=== PATIENT | female | born 1945 | race Caucasian/White ===

== ENCOUNTER 2022-09-16 19:52 | Inpatient (IN) | payer MEDICAID ==
[~2022-09-16] VITALS: Ht 162.6 cm; Wt 54.4 kg
[2022-09-16 19:56] VITALS: BP 117/81
--- NOTE | 2022-09-16 19:59 | NUR ---
PT BROUGHT TO BED 8 VIA PANCHO ROSEN
[2022-09-16] MEDS ORDERED: ONDANSETRON 4 MG/2 ML VIAL IVP ONE (20:15)
[2022-09-16] MEDS ORDERED: ONDANSETRON 4 MG/2 ML VIAL ONE (20:16)
--- NOTE | 2022-09-16 20:24 | NUR ---
PATIENT MEDICATED PER ORDERS. TOLERATED WELL.
[2022-09-16] MEDS ORDERED: NACL 0.9% 1,000 ML IV ONE ×2 (20:55→23:35)
--- NOTE | 2022-09-16 21:07 | NUR ---
77YR OLD FEMALE BIB EMS C/O CP ABD PAIN . 08/25 PAIN RADIATES TO BACK PRESSURE . VOMITING ONSET . PT IS A&OX3. RESP EVEN AND UNLABORED PT ON BEDSIDE E D TECH. PT IS LATVIAN SPEAKING ONLY. HOB ELEVATED. GLUC 257. NKDA CANCER PT HTN DM
--- NOTE | 2022-09-16 21:24 | NUR ---
XRAY AT BEDSIDE
--- NOTE | 2022-09-16 21:40 | NUR ---
ABENA COLLECTED AND WALKED TO LAB
--- NOTE | 2022-09-16 21:40 | NUR ---
URINE COLLECTED AND WALKED TO LAB.
--- NOTE | 2022-09-16 21:42 | NUR ---
COVID SWAB FOR POSS ADMISSION
--- NOTE | 2022-09-16 21:46 | NUR ---
SPOKE TO FAMILY WITH UPDATE ON PATIENT. STATED DAUGHTER JAROD ALFARO [phone] WOULD LIKE TO BE NOTIFIED WITH CHANGES OR FOR DISCHARGE.
[2022-09-16] MEDS ORDERED: METF-1139 PO (21:48)
[2022-09-16] MEDS ORDERED: VITA1TAB44 PO (21:48)
--- NOTE | 2022-09-16 21:48 | NUR ---
MED REC COMPLETE
[2022-09-16 21:53] LABS: BASOPHILS % (AUTO) 0.7 % (0.0-2.0); EOSINOPHILS % (AUTO) 2.5 % (0.0-4.0); HEMATOCRIT 35.6 % (36-48); HEMOGLOBIN 11.9 g/dL (12.0-16.0); LYMPHOCYTES # (AUTO) 0.9 K/uL (2.5-16.5); LYMPHOCYTES % (AUTO) 71.8 % (20.5-51.1); MEAN CORPUSCULAR HEMOGLOBIN 32 pg (27-31); MEAN CORPUSCULAR HGB CONC 34 g/dL (33-37); MEAN CORPUSCULAR VOLUME 94.1 fL (80-94); MONOCYTES # (AUTO) 0.3 K/uL (0.8-1.0); MONOCYTES % (AUTO) 23.8 % (1.7-9.3); NEUTROPHILS % (AUTO) 1.2 % (42.2-75.2); PLATELET COUNT (AUTO) 59 K/uL (140-450); RED BLOOD CELL COUNT(AUTO) 3.79 MIL/uL (4.20-5.40); RED CELL DISTRIBUTION WIDTH 17.6 % (11.6-13.7)
[2022-09-16 22:07] LABS: APPEARANCE,URINE CLEAR (CLEAR); BILIRUBIN,URINE NEGATIVE (NEGATIVE); BLOOD, URINE NEGATIVE (NEGATIVE); COLOR,URINE YELLOW (YELLOW); LEUKOCYTE ESTERASE ,URINE NEGATIVE (NEGATIVE); NITRITE, URINE POSITIVE (NEGATIVE); PH,URINE 7.5 (5.0-9.0); UGLUCOSE 1+ (NEGATIVE)
[2022-09-16 22:33] LABS: ALBUMIN 3.4 g/dL (3.4-5.0); ANION GAP 13.5 (8-16); ASPARTATE AMINOTRANSFERASE 18 U/L (15-37); CHLORIDE 99 mmol/L (98-107); CREATININE 0.8 mg/dL (0.6-1.3); GLUCOSE 239 mg/dL (74-106); LIPASE 72 U/L (73-393); POTASSIUM 3.5 mmol/L (3.5-5.1); SODIUM SERUM 136 mmol/L (136-145); TOTAL BILIRUBIN 0.6 mg/dL (0.0-1.0); UREA NITROGEN, BLOOD 22 mg/dL (7-18); WHITE BLOOD COUNT (AUTO) 1.2 K/uL (4.8-10.8)
[2022-09-16] MEDS ORDERED: PIPERACILLIN/TAZOBACTAM 3.375 GM in DEXTROSE 5% 50 ML IV ONE (23:40)
--- NOTE | 2022-09-16 23:58 | NUR ---
SPOKE TO SYLVIE ANTOINE [phone]. WOULD LIKE TO BE UPDATED IN REGARDS TO PATIENT STATUS.
[2022-09-17] MEDS ORDERED: PIPERACILLIN/TAZOBACTAM 3.375 GM VIAL IV ONE (00:02)
--- NOTE | 2022-09-17 00:33 | NUR ---
SPOKE TO SYSTEMS TECHNOLOGIST NEO REGARDING CLINICALS. STATED THAT SHE WOULD BE CALLING BACK WITH AN UPDATE.
--- NOTE | 2022-09-17 01:05 | NUR ---
SPOKE TO NEO GUM DIPPER UPDATED WITH MEDS GIVEN
--- NOTE | 2022-09-17 03:46 | NUR ---
PT REPOSTION CHANGED INTO DRY GOWN. PT HAD A ESPIODE OF VOMITING. DENIES PAIN CP OR SOB. ON BEDSIDE POLICY AND PLANNING MANAGER. HOB ELEVATED. BED AT LOWEST LEVEL.
--- NOTE | 2022-09-17 03:57 | NUR ---
IV ESTABLISHED 18G L AC.
--- NOTE | 2022-09-17 03:58 | NUR ---
PATIENT TAKEN TO CT VIA JESSIKA
--- NOTE | 2022-09-17 04:05 | NUR ---
PT TO CT
--- NOTE | 2022-09-17 04:16 | NUR ---
PT BACK FROM CT
--- NOTE | 2022-09-17 06:48 | NUR ---
PT CHANGED INTO CLEAN AND DRY DIAPER. REPOSITION PT . ON CARIDAC BEDSIDE MONITOR
--- NOTE | 2022-09-17 07:20 | NUR ---
Report recieved from JOSSELINE Ann for transfer of care.
--- NOTE | 2022-09-17 08:11 | NUR ---
Patient was assisted in using bedside commode.
[2022-09-17] MEDS ORDERED: DOCUSATE SODIUM 100 MG GELCAP PO PRN (08:20)
[2022-09-17] MEDS ORDERED: ZOLPIDEM 10 MG TAB PO PRN (08:20)
[2022-09-17] MEDS ORDERED: LORazepam 2 MG/ML VIAL IVP PRN (08:20)
[2022-09-17] MEDS ORDERED: MORPHINE SULFATE 2 MG/ML SYR IVP PRN (08:20)
[2022-09-17] MEDS ORDERED: DEXTROSE 50% 50 ML SYR IVP PRN (08:25)
--- NOTE | 2022-09-17 08:34 | NUR ---
Dr. Brown, admitting doctor, evaluating patient at bedside.
[2022-09-17 09:20] VITALS: BP 148/55
--- NOTE | 2022-09-17 09:32 | NUR ---
Patient will be admitted to care of Dr. Brown. Admited to Med-Surg. Will go to room 110-B. Belongings list completed. Report to ASIM Wynn.
--- NOTE | 2022-09-17 09:40 | NUR ---
RECEIVED REPORT FROM ED NURSE FOR CONTINUITY OF CARE. PT IN STABLE CONDITION. PT IS CURRENTLY SLEEPING, A/OX3 AND BREATHING IS EVEN, REGULAR AND UNLABORED ON ROOM AIR. PT WAS REPORTED CONTINENT OF THE BLADDER, AND REPORTED SEVERE CONSTIPATION WITH DISTAL FECAL IMPACTION. LAST BLOOD SUGAR REPORTED WAS 239, AND WAS NOT COVERED WITH INSULIN. SKIN IS INTACT, AND FRAIL. PT IS ADMITTED ON OBSERVATION STATUS. 2X IV'S NOTED, BOTH ON THE LEFT ARM, BOTH DRESSING CLEAN, DRY, AND INTACT. PT ENDORSED NAUSEA AT THIS TIME, AND REQUESTED TO KEEP SLEEPING.
--- NOTE | 2022-09-17 10:16 | NUR ---
The patient's care was reviewed and supervised by Melissa Colin RN.
[2022-09-17] MEDS: BLOOD GLUCOSE MONITORING 1 DEV DEV FS SCH ×3 (12:08→21:14)
[2022-09-17] MEDS: INSULIN LISPRO SLIDING SCALE 100 UNITS/ML VIAL SUBQ PRN ×2 (12:22→21:13)
[2022-09-17] MEDS: NACL 0.9% 1,000 ML IV SCH (13:01)
[2022-09-17] MEDS: PIPERACILLIN/TAZOBACTAM 3.375 GM in DEXTROSE 5% 50 ML IV SCH ×2 (13:09→21:14)
[2022-09-17] MEDS: PANTOPRAZOLE 40 MG INJ VIAL IVP SCH (13:28)
[2022-09-17] MEDS: POLYETHYLENE GLYCOL 17 GM/PKT PO SCH (13:28)
[2022-09-17] MEDS ORDERED: VANCOMYCIN PER PHARMACY MC PRN (15:50)
[2022-09-17 16:00] VITALS: BP 129/64
--- NOTE | 2022-09-17 16:04 | NUR ---
P.T. NOTES P.T. EVAL COMPLETED; REFER TO EVAL FOR DETAILS.
[2022-09-17] MEDS: AZITHROMYCIN 500 MG in DEXTROSE 5% 250 ML IV SCH (17:44)
--- NOTE | 2022-09-17 19:10 | NUR ---
ENDORSED PT TO NIGHTSHIFT NURSE VANDANA FOR CONTINUITY OF CARE. PT'S DAUGHTER AT THE BEDSIDE.
[2022-09-17] MEDS: VANCOMYCIN 750 MG in DEXTROSE 5% 250 ML IV SCH (19:15)
--- NOTE | 2022-09-17 19:30 | NUR ---
RECIEIVED PT IN BED WITH DAUGHTER AT BEDSIDE ASSESSMENT COMPLETED PLAN OF CARE REVIEWED PT DENIES PAIN AT THIS TIME NO DISTRESS NOTED PLAN OF CARE REVIEWED BREATHING EVEN NON LABORED WILL CONTINUE TO MONITOR AND ASSESS CALL LIGHT IN REACH BED IN LOW POSITION PURWICK IN PLACE
[2022-09-18] MEDS: ACETAMINOPHEN 325 MG TAB PO PRN (00:02)
--- NOTE | 2022-09-18 00:06 | NUR ---
PT AWAKE ASSISTED WITH TURNING AND REPSITIONING COMPLAINS OF HEADACHE 02/23 TYLENOL GIVEN ORDERED WILL CONTINUE TO MONITOR AND ASSESS
[2022-09-18] MEDS: NACL 0.9% 1,000 ML IV SCH ×2 (01:06→15:43)
[2022-09-18] MEDS: PIPERACILLIN/TAZOBACTAM 3.375 GM in DEXTROSE 5% 50 ML IV SCH ×3 (04:33→21:28)
[2022-09-18] MEDS: BLOOD GLUCOSE MONITORING 1 DEV DEV FS SCH ×4 (06:20→21:20)
[2022-09-18] MEDS: INSULIN LISPRO SLIDING SCALE 100 UNITS/ML VIAL SUBQ PRN ×4 (06:21→21:25)
[2022-09-18 07:13] LABS: HEMATOCRIT 27.2 % (36-48); HEMOGLOBIN 9.4 g/dL (12.0-16.0); MEAN CORPUSCULAR HEMOGLOBIN 32 pg (27-31); MEAN CORPUSCULAR HGB CONC 35 g/dL (33-37); MEAN CORPUSCULAR VOLUME 91.4 fL (80-94); PLATELET COUNT (AUTO) 68 K/uL (140-450); RED BLOOD CELL COUNT(AUTO) 2.98 MIL/uL (4.20-5.40); RED CELL DISTRIBUTION WIDTH 17.4 % (11.6-13.7); WHITE BLOOD COUNT (AUTO) 3.6 K/uL (4.8-10.8)
[2022-09-18 07:15] LABS: ANION GAP 13.1 (8-16); CARBON DIOXIDE 28.3 mmol/L (21-32); CHLORIDE 97 mmol/L (98-107); CREATININE 0.5 mg/dL (0.6-1.3); GLUCOSE 173 mg/dL (74-106); SODIUM SERUM 136 mmol/L (136-145); UREA NITROGEN, BLOOD 12 mg/dL (7-18)
--- NOTE | 2022-09-18 07:22 | NUR ---
CARE ENDORSED TO JACKELINE DAILEY
[2022-09-18 07:31] LABS: POTASSIUM 2.4 mmol/L (3.5-5.1)
[2022-09-18 08:00] VITALS: BP 128/62
[2022-09-18 08:14] LABS: LYMPHOCYTES % (MANUAL) 42 % (20-46); METAMYELOCYTES % 3 % (0-0); MONOCYTES % (MANUAL) 20 % (5-12); MYELOCYTES % 3 % (0-0)
[2022-09-18] MEDS: MAG SULF 2000 MG/WATER PREMIX 50 ML IV PRN (08:28)
[2022-09-18] MEDS: PANTOPRAZOLE 40 MG INJ VIAL IVP SCH (08:29)
[2022-09-18] MEDS ORDERED: POTASSIUM CHLORIDE 10 MEQ TABER PO SCH (09:00)
[2022-09-18] MEDS: POLYETHYLENE GLYCOL 17 GM/PKT PO SCH ×2 (09:00→09:21)
[2022-09-18] MEDS ORDERED: POTASSIUM CHLORIDE 40 MEQ, LIDOCAINE 1% 25 MG in NACL 0.9% 250 ML IV SCH (09:30)
[2022-09-18] MEDS: bisacodyL 5 MG TABEC PO SCH (09:42)
[2022-09-18 16:00] VITALS: BP 114/50
[2022-09-18] MEDS: AZITHROMYCIN 500 MG in DEXTROSE 5% 250 ML IV SCH (16:50)
[2022-09-18] MEDS: ONDANSETRON 4 MG/2 ML VIAL IVP PRN (16:57)
[2022-09-18] MEDS: VANCOMYCIN 750 MG in DEXTROSE 5% 250 ML IV SCH (18:30)
[2022-09-19 01:24] VITALS: BP 124/68
[2022-09-19] MEDS: NACL 0.9% 1,000 ML IV SCH ×2 (04:41→18:05)
[2022-09-19] MEDS: PIPERACILLIN/TAZOBACTAM 3.375 GM in DEXTROSE 5% 50 ML IV SCH ×3 (04:42→21:23)
[2022-09-19] MEDS: INSULIN LISPRO SLIDING SCALE 100 UNITS/ML VIAL SUBQ PRN ×4 (06:51→20:56)
[2022-09-19] MEDS: BLOOD GLUCOSE MONITORING 1 DEV DEV FS SCH ×4 (06:52→20:52)
[2022-09-19 06:57] LABS: BASOPHILS % (AUTO) 0.5 % (0.0-2.0); EOSINOPHILS # (AUTO) 0.1 K/uL (0-0.4); HEMOGLOBIN 10.3 g/dL (12.0-16.0); LYMPHOCYTES # (AUTO) 1.1 K/uL (2.5-16.5); LYMPHOCYTES % (AUTO) 16.8 % (20.5-51.1); MEAN CORPUSCULAR HEMOGLOBIN 32 pg (27-31); MEAN CORPUSCULAR HGB CONC 34 g/dL (33-37); MEAN CORPUSCULAR VOLUME 92.4 fL (80-94); MONOCYTES # (AUTO) 0.6 K/uL (0.8-1.0); MONOCYTES % (AUTO) 8.8 % (1.7-9.3); NEUTROPHILS # (AUTO) 4.9 K/uL (1.8-7.7); NEUTROPHILS % (AUTO) 72.9 % (42.2-75.2); PLATELET COUNT (AUTO) 92 K/uL (140-450); RED BLOOD CELL COUNT(AUTO) 3.24 MIL/uL (4.20-5.40); RED CELL DISTRIBUTION WIDTH 17.8 % (11.6-13.7); WHITE BLOOD COUNT (AUTO) 6.8 K/uL (4.8-10.8)
[2022-09-19 07:30] LABS: CARBON DIOXIDE 30.4 mmol/L (21-32); CHLORIDE 100 mmol/L (98-107); CREATININE 0.6 mg/dL (0.6-1.3); GLUCOSE 162 mg/dL (74-106); POTASSIUM 3.4 mmol/L (3.5-5.1); SODIUM SERUM 139 mmol/L (136-145); UREA NITROGEN, BLOOD 9 mg/dL (7-18)
[2022-09-19 08:00] VITALS: BP 130/67
[2022-09-19] MEDS: bisacodyL 5 MG TABEC PO SCH (08:56)
[2022-09-19] MEDS: POLYETHYLENE GLYCOL 17 GM/PKT PO SCH (08:57)
[2022-09-19] MEDS: PANTOPRAZOLE 40 MG INJ VIAL IVP SCH (08:57)
--- NOTE | 2022-09-19 09:50 | NUR ---
ALL SCHEDULED MEDS GIVEN. PT IS STABLE. NO DISTRESS NOTED. WILL CONTINUE TO MONITOR.
--- NOTE | 2022-09-19 12:17 | NUR ---
ALL SCHEDULED MEDS GIVEN. PT IS STABLE. NO DISTRESS NOTED. WILL CONTINUE TO MONITOR.
--- NOTE | 2022-09-19 14:20 | NUR ---
CHECKED ON PATIENT. PT IS STABLE. NO DISTRESS NOTED. WILL CONTINUE TO MONITOR.
--- NOTE | 2022-09-19 15:59 | NUR ---
PATIENT HAS BEEN SCREENED AND CATEGORIZED HIGH NUTRITION RISK. PATIENT WILL BE SEEN WITHIN 1-2 DAYS OF ADMISSION. 09/17/22-09/19/22 [facility] REFERRAL RECEIVED FOR UNINTENTIONAL WEIGHT LOSS. REVIEWED BY PIETRO ROGERS RD
[2022-09-19 16:00] VITALS: BP 125/51
[2022-09-19] MEDS: ONDANSETRON 4 MG/2 ML VIAL IVP PRN (16:49)
--- NOTE | 2022-09-19 17:00 | NUR ---
09/19/22 RD INITIAL ASSESSMENT COMPLETED PLEASE REFER TO NUTRITION ASSESSMENT UNDER CARE ACTIVITY FOR ESTIMATED NUTRITIONAL NEEDS. 1. RECOMMEND CCH0 60GM DIET TOLERATED 2. RECOMMEND GLUCERNA BID FOR NUTRITION SUPPORT 3. RD TO FOLLOW-UP 7 DAYS, LOW RISK PIETRO ROGERS RD
[2022-09-19] MEDS: AZITHROMYCIN 500 MG in DEXTROSE 5% 250 ML IV SCH (18:05)
[2022-09-19] MEDS: ACETAMINOPHEN 325 MG TAB PO PRN (18:06)
--- NOTE | 2022-09-19 18:18 | NUR ---
IV WAS INFILTRATED. INSERTED NEW 24 G IV ON RH. INTACT AND PATENT. INFUSING WELL.
[2022-09-19] MEDS: VANCOMYCIN 750 MG in DEXTROSE 5% 250 ML IV SCH (19:20)
--- NOTE | 2022-09-19 19:48 | NUR ---
INSERTED ANOTHER 24 G IV LH INTACT AND PATENT.
[2022-09-20 04:32] VITALS: BP 137/59
[2022-09-20] MEDS: PIPERACILLIN/TAZOBACTAM 3.375 GM in DEXTROSE 5% 50 ML IV SCH ×3 (05:09→20:39)
[2022-09-20] MEDS: VANCOMYCIN 750 MG in DEXTROSE 5% 250 ML IV SCH ×2 (05:52→18:59)
[2022-09-20] MEDS: NACL 0.9% 1,000 ML IV SCH ×2 (05:53→20:35)
[2022-09-20] MEDS: INSULIN LISPRO SLIDING SCALE 100 UNITS/ML VIAL SUBQ PRN ×3 (06:37→20:38)
[2022-09-20] MEDS: BLOOD GLUCOSE MONITORING 1 DEV DEV FS SCH ×4 (06:38→20:33)
--- NOTE | 2022-09-20 07:10 | NUR ---
RECEIVED REPORT FROM GRAIN MERCHANDISING MANAGER NURSE GOLDIE FOR CONTINUITY OF CARE. NO SINS OF DISTRESS OR LABORED BREATHING AT THIS TIME. PT IS A&OX3 AND BREATHING IS EVEN AND REGULAR ON 2L NC. SKIN IS INTACT, AND FRAIL. PT HAS AN IV IN HER L WRIST THAT IS INTACT AND A 24G IN HER R HAND THAT PATENT, INTACT AND IS INFUSING NS AT 75MLS/HR. BED IN LOW POSITION, TWO SIDE RAILS UP, CALL LIGHT WITHIN REACH AND ALL SAFETY MEASURES MEET AT THIS TIME. WILL CONTINUE TO MONITOR.
[2022-09-20 07:34] LABS: BASOPHILS # (AUTO) 0.1 K/uL (0.00-0.22); BASOPHILS % (AUTO) 0.6 % (0.0-2.0); EOSINOPHILS # (AUTO) 0.1 K/uL (0-0.4); EOSINOPHILS % (AUTO) 0.9 % (0.0-4.0); HEMATOCRIT 28.2 % (36-48); HEMOGLOBIN 9.6 g/dL (12.0-16.0); LYMPHOCYTES # (AUTO) 1.7 K/uL (2.5-16.5); LYMPHOCYTES % (AUTO) 17.5 % (20.5-51.1); MEAN CORPUSCULAR HEMOGLOBIN 32 pg (27-31); MEAN CORPUSCULAR HGB CONC 34 g/dL (33-37); MONOCYTES # (AUTO) 0.5 K/uL (0.8-1.0); MONOCYTES % (AUTO) 5.5 % (1.7-9.3); NEUTROPHILS # (AUTO) 7.3 K/uL (1.8-7.7); NEUTROPHILS % (AUTO) 75.5 % (42.2-75.2); PLATELET COUNT (AUTO) 107 K/uL (140-450); RED CELL DISTRIBUTION WIDTH 18.1 % (11.6-13.7); WHITE BLOOD COUNT (AUTO) 9.7 K/uL (4.8-10.8)
[2022-09-20 08:00] LABS: CARBON DIOXIDE 29.9 mmol/L (21-32); CREATININE 0.5 mg/dL (0.6-1.3); GLUCOSE 161 mg/dL (74-106); UREA NITROGEN, BLOOD 9 mg/dL (7-18)
[2022-09-20] MEDS: PANTOPRAZOLE 40 MG INJ VIAL IVP SCH (09:14)
[2022-09-20] MEDS: bisacodyL 5 MG TABEC PO SCH (09:14)
[2022-09-20] MEDS: POLYETHYLENE GLYCOL 17 GM/PKT PO SCH (09:14)
[2022-09-20 09:20] LABS: CHLORIDE 102 mmol/L (98-107); SODIUM SERUM 140 mmol/L (136-145)
[2022-09-20 09:23] LABS: POTASSIUM 2.9 mmol/L (3.5-5.1)
[2022-09-20 09:48] VITALS: BP 158/64
[2022-09-20] MEDS ORDERED: POTASSIUM CHLORIDE 40 MEQ, LIDOCAINE 1% 25 MG in NACL 0.9% 250 ML IV SCH (11:00)
[2022-09-20] MEDS: ONDANSETRON 4 MG/2 ML VIAL IVP PRN ×2 (11:44→18:36)
[2022-09-20 16:00] VITALS: BP 133/60
[2022-09-20] MEDS: MAG SULF 2000 MG/WATER PREMIX 50 ML IV PRN (16:48)
--- NOTE | 2022-09-20 19:20 | NUR ---
ENDORSED PT TO MANAGER BEAUTY NURSE EMMA DAILEY AND NICK DAILEY FOR CONTINUITY OF CARE.
--- NOTE | 2022-09-20 19:25 | NUR ---
received report from day shift RN for continuity of care. will continue to monitor.
[2022-09-21 02:37] VITALS: BP 130/55
[2022-09-21] MEDS: PIPERACILLIN/TAZOBACTAM 3.375 GM in DEXTROSE 5% 50 ML IV SCH ×3 (04:19→20:44)
[2022-09-21] MEDS: VANCOMYCIN 750 MG in DEXTROSE 5% 250 ML IV SCH ×2 (05:20→18:10)
[2022-09-21] MEDS: INSULIN LISPRO SLIDING SCALE 100 UNITS/ML VIAL SUBQ PRN ×3 (06:09→20:45)
--- NOTE | 2022-09-21 06:44 | NUR ---
REPORT GIVEN TO DAY SHIFT RN FOR CONTINUITY OF CARE.
[2022-09-21] MEDS: BLOOD GLUCOSE MONITORING 1 DEV DEV FS SCH ×4 (06:55→20:40)
--- NOTE | 2022-09-21 07:05 | NUR ---
RECEIVED REPORT FROM FIELD SALES REPRESENTATIVE NURSE NICHOLE FOR CONTINUITY OF CARE. NO SIGNS OF DISTRESS OR LABORED BREATHING. PT IS A&OX3, ON ROOM AIR, HAS BRUISING ON BOTH ARMS BUT INTACT,AND IS ON BED REST. PT HAS A 24G IV IN HER L HAND THAT IS PATENT, INTACT AND INFUSING NS @75ML/HR. BED IN LOW POSITION, TWO SIDE RAILS UP, CALL LIGHT WITHIN REACH, AND ALL SAFETY MEASURES MEET. WILL CONTINUE TO MONITOR. Addendum: 09/21/22 at 2042 by Virginie Garcia RN FIELD SALES REPRESENTATIVE NURSE EMMA/NICK
[2022-09-21 07:29] LABS: BASOPHILS # (AUTO) 0.1 K/uL (0.00-0.22); BASOPHILS % (AUTO) 0.5 % (0.0-2.0); EOSINOPHILS % (AUTO) 0.3 % (0.0-4.0); HEMOGLOBIN 9.5 g/dL (12.0-16.0); LYMPHOCYTES # (AUTO) 1.9 K/uL (2.5-16.5); MEAN CORPUSCULAR HEMOGLOBIN 32 pg (27-31); MEAN CORPUSCULAR HGB CONC 34 g/dL (33-37); MEAN CORPUSCULAR VOLUME 92.8 fL (80-94); MONOCYTES # (AUTO) 0.9 K/uL (0.8-1.0); MONOCYTES % (AUTO) 8.2 % (1.7-9.3); NEUTROPHILS # (AUTO) 8.3 K/uL (1.8-7.7); NEUTROPHILS % (AUTO) 74.3 % (42.2-75.2); PLATELET COUNT (AUTO) 134 K/uL (140-450); RED BLOOD CELL COUNT(AUTO) 3.01 MIL/uL (4.20-5.40); RED CELL DISTRIBUTION WIDTH 17.9 % (11.6-13.7); WHITE BLOOD COUNT (AUTO) 11.2 K/uL (4.8-10.8)
[2022-09-21 07:46] LABS: CARBON DIOXIDE 29.1 mmol/L (21-32); CREATININE 0.5 mg/dL (0.6-1.3); GLUCOSE 169 mg/dL (74-106); UREA NITROGEN, BLOOD 8 mg/dL (7-18)
[2022-09-21 08:00] VITALS: BP 145/71
[2022-09-21 08:19] LABS: LYMPHOCYTES % (AUTO) 16.7 % (20.5-51.1)
[2022-09-21 08:44] LABS: ANION GAP 10.1 (8-16); CHLORIDE 102 mmol/L (98-107); POTASSIUM 3.2 mmol/L (3.5-5.1); SODIUM SERUM 138 mmol/L (136-145)
[2022-09-21] MEDS: POLYETHYLENE GLYCOL 17 GM/PKT PO SCH (09:00)
[2022-09-21] MEDS: bisacodyL 5 MG TABEC PO SCH (09:27)
[2022-09-21] MEDS: PANTOPRAZOLE 40 MG INJ VIAL IVP SCH (09:27)
[2022-09-21] MEDS: NACL 0.9% 1,000 ML IV SCH ×3 (09:55→23:27)
[2022-09-21 16:00] VITALS: BP 152/65
[2022-09-21] MEDS: ONDANSETRON 4 MG/2 ML VIAL IVP PRN (16:42)
[2022-09-21] MEDS: ACETAMINOPHEN 325 MG TAB PO PRN (17:28)
--- NOTE | 2022-09-21 19:10 | NUR ---
ENDORSED PT TO FRYLINE ATTENDANT NURSE EMMA DAILEY AND NICK DAILEY FOR CONTINUITY OF CARE.
[2022-09-21] MEDS: POTASSIUM CHLORIDE 10 MEQ TABER PO PRN (23:18)
[2022-09-22] VITALS: BP 152/65
--- NOTE | 2022-09-22 00:58 | NUR ---
PATIENT IS SLEEPING AND IS IN NO APPARENT DISTRESS. WILL CONTINUE TO MONITOR.
[2022-09-22] MEDS: ONDANSETRON 4 MG/2 ML VIAL IVP PRN ×2 (04:30→14:49)
[2022-09-22] MEDS: BLOOD GLUCOSE MONITORING 1 DEV DEV FS SCH ×4 (05:54→21:21)
[2022-09-22] MEDS: INSULIN LISPRO SLIDING SCALE 100 UNITS/ML VIAL SUBQ PRN ×2 (05:58→17:01)
[2022-09-22 07:05] LABS: CARBON DIOXIDE 29.2 mmol/L (21-32); CREATININE 0.5 mg/dL (0.6-1.3); GLUCOSE 161 mg/dL (74-106); UREA NITROGEN, BLOOD 8 mg/dL (7-18)
[2022-09-22 07:10] LABS: HEMATOCRIT 27.3 % (36-48); HEMOGLOBIN 9.4 g/dL (12.0-16.0); MEAN CORPUSCULAR HEMOGLOBIN 32 pg (27-31); MEAN CORPUSCULAR HGB CONC 34 g/dL (33-37); MEAN CORPUSCULAR VOLUME 93.1 fL (80-94); PLATELET COUNT (AUTO) 165 K/uL (140-450); RED BLOOD CELL COUNT(AUTO) 2.93 MIL/uL (4.20-5.40); WHITE BLOOD COUNT (AUTO) 9.8 K/uL (4.8-10.8)
[2022-09-22 07:25] LABS: LYMPHOCYTES % (MANUAL) 22 % (20-46); MONOCYTES % (MANUAL) 13 % (5-12)
[2022-09-22 07:40] LABS: ANION GAP 8.4 (8-16); CHLORIDE 103 mmol/L (98-107); POTASSIUM 3.6 mmol/L (3.5-5.1); SODIUM SERUM 137 mmol/L (136-145)
[2022-09-22 08:00] VITALS: BP 154/72
--- NOTE | 2022-09-22 08:00 | NUR ---
PATIENT RESTING IN BED COMFORTABLY. PATIENT DENIES PAIN, SOB, OR DISCOMFORT AT THIS TIME. BED LOCKED AT LOWEST POSITION, SIDE RAILS UP, CALL LIGHT WITHIN REACH. WILL CONTINUE TO MONITOR.
[2022-09-22] MEDS: PANTOPRAZOLE 40 MG INJ VIAL IVP SCH (09:35)
[2022-09-22] MEDS: POLYETHYLENE GLYCOL 17 GM/PKT PO SCH (09:36)
[2022-09-22] MEDS: bisacodyL 5 MG TABEC PO SCH (09:36)
[2022-09-22] MEDS: VANCOMYCIN 750 MG in DEXTROSE 5% 250 ML IV SCH (12:05)
[2022-09-22] MEDS ORDERED: AMOX-999 PO (12:35)
--- NOTE | 2022-09-22 15:00 | NUR ---
PT EVALUATED PATIENT. PER PATIENT SHE FELT VERY WEAK AND NAUSEAS AFTER PT
[2022-09-22] MEDS: ACETAMINOPHEN 325 MG TAB PO PRN (15:20)
[2022-09-22 16:00] VITALS: BP 159/72
--- NOTE | 2022-09-22 16:00 | NUR ---
PER DR JAMESON, HOLD DISCHARGE FOR PATIENT UNTIL POSSIBLE TOMORROW.
[2022-09-22] MEDS: NACL 0.9% 1,000 ML IV SCH (16:58)
--- NOTE | 2022-09-22 18:19 | NUR ---
PATIENT RESTING IN BED COMFORTABLY. PATIENT DENIES PAIN, SOB, OR DISCOMFORT AT THIS TIME. BED LOCKED AT LOWEST POSITION, SIDE RAILS UP, CALL LIGHT WITHIN REACH. ALL NEEDS MET AT THIS TIME.
[2022-09-22] MEDS: PIPERACILLIN/TAZOBACTAM 3.375 GM in DEXTROSE 5% 50 ML IV SCH (21:02)
[2022-09-23 02:10] VITALS: BP 160/67
[2022-09-23] MEDS: PIPERACILLIN/TAZOBACTAM 3.375 GM in DEXTROSE 5% 50 ML IV SCH ×3 (04:43→20:55)
[2022-09-23 05:32] LABS: BASOPHILS # (AUTO) 0.1 K/uL (0.00-0.22); EOSINOPHILS % (AUTO) 0.4 % (0.0-4.0); HEMATOCRIT 34.9 % (36-48); HEMOGLOBIN 11.6 g/dL (12.0-16.0); LYMPHOCYTES # (AUTO) 1.8 K/uL (2.5-16.5); LYMPHOCYTES % (AUTO) 16.2 % (20.5-51.1); MEAN CORPUSCULAR HEMOGLOBIN 31 pg (27-31); MEAN CORPUSCULAR HGB CONC 33 g/dL (33-37); MEAN CORPUSCULAR VOLUME 93.3 fL (80-94); MONOCYTES # (AUTO) 0.8 K/uL (0.8-1.0); MONOCYTES % (AUTO) 6.8 % (1.7-9.3); NEUTROPHILS # (AUTO) 8.5 K/uL (1.8-7.7); NEUTROPHILS % (AUTO) 75.6 % (42.2-75.2); PLATELET COUNT (AUTO) 189 K/uL (140-450); RED BLOOD CELL COUNT(AUTO) 3.74 MIL/uL (4.20-5.40); RED CELL DISTRIBUTION WIDTH 18.5 % (11.6-13.7); WHITE BLOOD COUNT (AUTO) 11.3 K/uL (4.8-10.8)
[2022-09-23 06:03] LABS: ANION GAP 11.2 (8-16); CARBON DIOXIDE 29.4 mmol/L (21-32); CHLORIDE 103 mmol/L (98-107); POTASSIUM 3.6 mmol/L (3.5-5.1); SODIUM SERUM 140 mmol/L (136-145)
[2022-09-23 06:04] LABS: CREATININE 0.5 mg/dL (0.6-1.3); GLUCOSE 150 mg/dL (74-106); UREA NITROGEN, BLOOD 7 mg/dL (7-18)
[2022-09-23] MEDS: VANCOMYCIN 750 MG in DEXTROSE 5% 250 ML IV SCH (06:28)
[2022-09-23] MEDS: BLOOD GLUCOSE MONITORING 1 DEV DEV FS SCH ×4 (06:44→21:09)
[2022-09-23] MEDS: INSULIN LISPRO SLIDING SCALE 100 UNITS/ML VIAL SUBQ PRN ×2 (06:47→21:11)
--- NOTE | 2022-09-23 07:30 | NUR ---
RECEIVED REPORT FROM NIGHTSHIFT NURSE. PT A/O X4. ROMANIAN SPEAKING. DAUGHTER AT BEDSIDE TRANSLATING. DENIES PAIN. STATES PT VOMITTED X1. NO SOB OR RESPIRATORY DISTRESS. ON RA. REGULAR DIET. R WRIST #24 SL. NEEDS ALL MET AT THIS TIME. ALL SAFETY MEASURES IN PLACE.
[2022-09-23 08:00] VITALS: BP 152/74
[2022-09-23] MEDS: POLYETHYLENE GLYCOL 17 GM/PKT PO SCH (09:00)
[2022-09-23] MEDS: bisacodyL 5 MG TABEC PO SCH (10:16)
[2022-09-23] MEDS: PANTOPRAZOLE 40 MG INJ VIAL IVP SCH (10:16)
[2022-09-23] MEDS: ONDANSETRON 4 MG/2 ML VIAL IVP PRN (10:17)
[2022-09-23] MEDS ORDERED: METOCLOPRAMIDE 10 MG/2 ML INJ VIAL IVP SCH (11:00)
--- NOTE | 2022-09-23 11:15 | NUR ---
PT DISCONNECTED FROM IV. PT OFF TO CT.
--- NOTE | 2022-09-23 11:30 | NUR ---
PT BACK FROM CT.
--- NOTE | 2022-09-23 11:43 | NUR ---
DC PLANNING: PATIENT HAS AN ORDER TO GO TO SNF FOR PHYSICAL THERAPY FAXED THE REQUEST TO CM TO FOLLOW Addendum: 09/24/22 at 1305 by Nadine Zapata RN DC PLANNING: SPOKE WITH PATIENT'S DAUGHTER STATED HER MOM DOESN'T WANT HER TO GO TO SNF. PREFERRED HOME WITH HOME HEALTH. NOTIFIED DR JAMESON AND WILL ARRANGE HOME HEALTH. CM TO FOLLOW
--- NOTE | 2022-09-23 12:00 | NUR ---
DISCHARGE PLANNING : PATIENT IS A 77-YEAR-OLD FEMALE ADMITTED IN [facility]/ED ON 09/19/2022 DUE TO UTI. PATIENT HAS MEDICAL HISTORY OF LEUKEMIA, HYPERTENSION AND DIABETES (PATIENT IS BARBADIAN SPEAKING ONLY). SW MET WITH PATIENT,AND DAUGHTER AT BEDSIDE TO DISCUSS AND GATHER PATIENT'S COLLATERAL INFORMATION. PATIENT WAS NOT ALERT AND AWAKE DURING MEETING WITH SW. THEREFORE; HER DAUGHTER JAROD ALFARO WAS ABLE TO PROVIDE PATIENT'S INFORMATION. PER PATIENT'S DAUGHTER SHE LIVES AT HOME WITH HER AND DAUGHTER'S ADULT SON SYLVIE (PATIENT'S GRANDSON). PER PATIENT'S DAUGHTER SHE HAS GOOD SUPPORT SYSTEM FROM HER FAMILY AND REPORTED THAT PATIENT WAS ACTIVE AND INDEPENDENT AT HOME, UNTIL RECENTLY ABOUT A MONTH AGO. PATIENT'S DAUGHTER REPORTED THAT SHE DID NOT HAVE ADVANCE DIRECTIVES AND WAS NOT INTERESTED ON GETTING INFORMATION FORMS PROVIDED BY SW AT THE TIME OF VISIT. PER PATIENT'S DAUGHTER JAROD ALFARO [phone] IS HER EMERGENCY CONTACT AND MEDICAL DECISION MAKER. PATIENT'S DAUGHTER REPORTED THAT PATIENT HAS ONLY A WHEELCHAIR HER DME BUT NOT USING IT AT ALL AT THIS TIME. PATIENT'S DAUGHTER REPORTED THAT PATIENT IS NOT HAVING ANY ISSUES WITH GETTING OR TAKING HER MEDICATIONS, SHE REPORTED PICKING UP MEDICATIONS FROM THE [facility] IN [place] IN [facility]. FLORY DISCUSSED HER RELATIONSHIP WITH HER PCP DR.CLAUDIA GUTIERREZ WITH WHO SHE VISIT LAST ABOUT TWO MONTHS AGO. FLORY DISCUSSED AND EXPLAINED TO PATIENT'S DAUGHTER THE NEED TO FOLLOW UP WITH AN APPOINTMENT WITHIN 5-7 DAYS OF HER DISCHARGE FROM [facility]; WITH HER PCP AFTER SHE DISCHARGE FROM [facility]. PATIENT'S DAUGHTER AGREED AND STATED THAT SHE WILL MAKE HER APPOINTMENT. PATIENT'S DAUGHTER DECLINED FOR SW TO MAKE PATIENT'S FOLLOW UP APPOINTMENT WITH PRIMARY DOCTOR AFTER SHE DISCHARGES FROM [facility]. PATIENT'S DAUGHTER STATED THAT SHE WILL BE ASSISTING HER WITH TRANSPORTATION BACK HOME WHEN SHE IS READY FOR DISCHARGE. PER PATIENT'S DAUGHTER PATIENT WAS GETTING PALLIATIVE CARE SERVICES WITH [facility] AND WILL LIKE TO RE-INSTATE SERVICES FOR HER MOTHER WHEN SHE IS READY AND STABLE TO DISCHARGE. FLORY INFORMED PATIENT'S DAUGHTER THAT SW WILL ENDORSE INFORMATION TO CM. SW/CM WILL FOLLOW UP WITH PATIENT NEEDED.
[2022-09-23] MEDS: NACL 0.9% 1,000 ML IV SCH (15:16)
[2022-09-23 16:00] VITALS: BP 147/70
--- NOTE | 2022-09-23 19:28 | NUR ---
REPORT GIVEN TO NIGHTSHIFT NURSESHADY FOR CONTINUITY OF CARE.
--- NOTE | 2022-09-23 19:30 | NUR ---
RECEIVED REPORT FROM DAY SHIFT NURSE GRACE FOR CONTINUITY OF CARE. PATIENT IS IN BED WITH FAMILY MEMBER AT BEDSIDE. PATIENT IS A&O X4. PATIENT IS ON ROOM AIR, BREATHING IS NORMAL WITH SYMMETRICAL RISE AND FALL OF CHEST. IV IS A 24G RFA, RUNNING NS AT 75; AND A 24G LEFT WRIST, SALINE LOCKED. BED IS IN LOWEST POSITION, WHEELS LOCKED, CALL LIGHT IN PLACE. WILL CONTINUE TO OBSERVE PATIENT.
[2022-09-23 20:00] VITALS: BP 150/65
--- NOTE | 2022-09-23 21:15 | NUR ---
ENTERED ROOM TO ADMINISTER 2100 IVPB ZOSYN AND OBTAIN BS. PATIENT WAS SLEEPING, LYING SUPINE ON HER SIDE. IVPB WAS ADMINISTERED SUCCESSFULLY, WITHOUT ANY ISSUES. BS WAS 169, 2 UNITS OF HUMALOG WAS GIVEN FOR COVERAGE. PATIENT'S BREATHING WAS NORMAL WITH SYMMETRICAL RISE AND FALL OF CHEST. WILL CONTINUE TO OBSERVE PATIENT.
[2022-09-23] MEDS ORDERED: VANCOMYCIN 500 MG VIAL ONE (23:54)
[2022-09-24] MEDS: VANCOMYCIN 750 MG in DEXTROSE 5% 250 ML IV SCH ×2 (00:10→17:13)
--- NOTE | 2022-09-24 00:15 | NUR ---
ADMINISTERED 0000 VANCO IVPB TO PATIENT. TROPH WAS 16.9; CALLED PHARMACY TO MAKE SURE MEDICATION WAS STILL OKAY TO GIVE; SPOKE WITH PHARMACIST KAREN, HE SAID MEDICATION WAS STILL OKAY TO GIVE BECAUSE TROPH WAS BELOW 20. MEDICATION WAS ADMINISTERED SUCCESSFULLY. PATIENT WAS SLEEPING, BREATHING WAS NORMAL WITH SYMMETRICAL RISE AND FALL OF CHEST. WILL CONTINUE TO OBSERVE PATIENT.
--- NOTE | 2022-09-24 01:20 | NUR ---
PATIENT WAS ASSESSED AND FOUND TO HAVE VOIDED. PATIENT WAS CHANGED BY JOSSELINE ALBARRAN AND MYSELF. PATIENT HAD VOIDED WITH NO BM. PATIENT'S CHUCKS DIAPER WAS CHANGED. PATIENT TOLERATED CHANGE WELL. IVPB WAS STILL RUNNING. BREATHING WAS NORMAL WITH SYMMETRICAL RISE AND FALL OF CHEST. BED WAS RETURNED TO LOWEST POSITION WITH WHEELS LOCKED AND CALL LIGHT IN PLACE. WILL CONTINUE TO OBSERVE PATIENT.
--- NOTE | 2022-09-24 02:00 | NUR ---
CLEANSED AND DIAPER CHANGED. MADE COMFORTABLE IN BED WITH WARM BLANKETS. Addendum: 09/25/22 at 0505 by Petrona Carvalho LVN CORRECTION: PLEASE DISREGARD THIS NOTES, WRONG ENTRY.
--- NOTE | 2022-09-24 03:00 | NUR ---
LOOKED IN ON PATIENT. PATIENT WAS SLEEPING, LYING SUPINE WITH BLANKETS PULLED UP TO SHOULDERS. IV WAS RUNNING NS AT 75. PATIENT'S BREATHING WAS NORMAL WITH SYMMETRICAL RISE AND FALL OF CHEST. WILL CONTINUE TO OBSERVE PATIENT.
[2022-09-24 04:00] VITALS: BP 161/92
[2022-09-24] MEDS: NACL 0.9% 1,000 ML IV SCH ×2 (04:35→17:13)
[2022-09-24] MEDS: PIPERACILLIN/TAZOBACTAM 3.375 GM in DEXTROSE 5% 50 ML IV SCH ×3 (04:58→22:26)
--- NOTE | 2022-09-24 05:05 | NUR ---
ENTERED ROOM TO ADMINISTER 0500 ZOSYN IVPB. PATIENT WAS SLEEPING, LYING SUPINE. ADMINISTERED IVPB SUCCESSFULLY WITHOUT ANY ISSUES. PATIENT'S BREATHING WAS NORMAL WITH SYMMETRICAL RISE AND FALL OF CHEST. BED IS IN LOWEST POSITION, WHEELS LOCKED AND CALL LIGHT IN PLACE. WILL CONTINUE TO OBSERVE PATIENT.
[2022-09-24] MEDS: BLOOD GLUCOSE MONITORING 1 DEV DEV FS SCH ×4 (07:20→21:00)
--- NOTE | 2022-09-24 07:20 | NUR ---
ENTERED ROOM TO OBTAIN BS. BS WAS 169, 2 UNITS OF HUMALOG GIVEN INTO LEFT ARM FOR COVERAGE. PATIENT WAS SLEEPING WHEN I ENTERED THE ROOM. IV WAS RUNNING NS AT 75. PATIENT TOLERATED INSULIN INJECTION WELL. BREATHING WAS NORMAL WITH SYMMETRICAL RISE AND FALL OF CHEST. WILL CARE TO DAY SHIFT NURSE.
[2022-09-24] MEDS: INSULIN LISPRO SLIDING SCALE 100 UNITS/ML VIAL SUBQ PRN ×3 (07:22→22:03)
--- NOTE | 2022-09-24 07:30 | NUR ---
REPORT RECEIVED FROM NIGHTSHIFT NURSE SHADY AND STATES PT WITH EMESIS LAST NIGHT. PT A/O X4. DIVEHI SPEAKING. DENIES PAIN. NO SOB OR RESPIRATORY DISTRESS. ON RA. HOB ELEVATED. IV TO SL. NEEDS ALL MET AT THIS TIME. ALL SAFETY MEASURES IN PLACE.
--- NOTE | 2022-09-24 07:30 | NUR ---
ENDORSED TO DAY SHIFT NURSE GRACE FOR CONTINUITY OF CARE. PATIENT IS STABLE.
[2022-09-24 08:00] VITALS: BP 160/56
[2022-09-24] MEDS: bisacodyL 5 MG TABEC PO SCH ×2 (08:54→09:00)
[2022-09-24] MEDS: PANTOPRAZOLE 40 MG INJ VIAL IVP SCH (08:54)
[2022-09-24] MEDS: ONDANSETRON 4 MG/2 ML VIAL IVP PRN ×2 (08:54→15:22)
[2022-09-24] MEDS: POLYETHYLENE GLYCOL 17 GM/PKT PO SCH (08:55)
[2022-09-24] MEDS ORDERED: IV Zosyn IV (10:16)
--- NOTE | 2022-09-24 10:45 | NUR ---
FIELDED CALL FROM PT NURSE WHO REPORTS PATIENT REQUESTING TO SPEAK TO SW. SW MET WITH PTS DAUGHTER JAROD AT BEDSIDE. 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 PATIENT REQUESTING MEDICAL UPDATE ON PT STATUS PT HAS BEEN ADMITTED FOR 5 DAYS. EXPLAINED TO JAROD THAT ANSWERING ANY MEDICAL QUESTIONS WAS BEYOND SCOPE OF PRACTICE. SW NOTIFIED JAROD THAT INFORMATION WOULD BE ENDORSED TO PT NURSE WHO WILL PROVIDE UPDATE OR CONTACT DR, NEEDED. JAROD REQUESTING IF PT CAN BE TRANSFERRED TO [facility] HER ONCOLOGIST IS AT [facility]. EXPLAINED TO PATIENT THAT ORDER FOR TRANSFER HAS TO COME FROM PHYSICIAN. ENDORSED TO PT NURSE, NURSE AWARE AND REPORTS SHE WILL SPEAK WITH PT.
--- NOTE | 2022-09-24 12:00 | NUR ---
PT DENIES PAIN. IVF INFUSING. NO NAUSEA AT THIS TIME. NO SOB. NEEDS ALL MET. ALL SAFETY MEASURES IN PLACE.
[2022-09-24] MEDS: ACETAMINOPHEN 325 MG TAB PO PRN (15:22)
[2022-09-24 16:00] VITALS: BP 156/69
--- NOTE | 2022-09-24 19:18 | NUR ---
REPORT GIVEN TO NIGHTSHIFT NURSETRIPP FOR CONTINUITY OF CARE.
--- NOTE | 2022-09-24 19:19 | NUR ---
RECD. RESTING IN BED, AWAKE, A/OX3. RESPIRATION EVEN AND UNLABORED. IV OF NS INFUSING AT 75 ML/HR, RIGHT FOREARM G24. IV SALINE LOCK AT THE LEFT WRIST 24, PATENT AND INTACT. NO APPETITE TO EAT, DINNER TRAY AT THE BEDSIDE UNTOUCHED. HAS OCCASIONAL NAUSEA AND VOMITING PER DAUGHTER AT THE BEDSIDE. ENCOURAGED TO DRINK SUPPLEMENT OF ENSURE AT THE BEDSIDE. MEDICATIONS AND CARE DISCUSSED WITH DAUGHTER. VERBALIZED UNDERSTANDING. PATIENT IS FEELING WEAK. DENIES PAIN 0/10.
[2022-09-24 20:00] VITALS: BP 159/69
--- NOTE | 2022-09-24 21:30 | NUR ---
REFUSED SNACK WHEN OFFERED. INSTRUCTED TO CALL NURSE IF NEEDING HELP. VERBALIZED UNDERSTANDING.
[2022-09-25] VITALS: BP 156/72
--- NOTE | 2022-09-25 | NUR ---
SLEEPING COMFORTABLY IN BED, RESPIRATION EVEN AND UNLABORED.
--- NOTE | 2022-09-25 02:00 | NUR ---
CLEANSED AND DIAPER CHANGED. MADE COMFORTABLE IN BED, WITH PILLOWS.
--- NOTE | 2022-09-25 04:00 | NUR ---
CLEANSED AND DIAPER CHANGED DONE. REPOSITIONING IN BED FOR COMFORT DONE.
--- NOTE | 2022-09-25 05:55 | NUR ---
NO APPETITE TO EAT. REFUSING OFFERS OF SNACK BUT AGREED TO DRINK 120 ML OF WARM MILK.
[2022-09-25] MEDS: BLOOD GLUCOSE MONITORING 1 DEV DEV FS SCH ×2 (06:32→12:00)
[2022-09-25] MEDS: INSULIN LISPRO SLIDING SCALE 100 UNITS/ML VIAL SUBQ PRN ×2 (06:32→12:05)
[2022-09-25] MEDS: NACL 0.9% 1,000 ML IV SCH (06:39)
[2022-09-25 07:12] LABS: ANION GAP 9.1 (8-16); CARBON DIOXIDE 29.2 mmol/L (21-32); CHLORIDE 102 mmol/L (98-107); CREATININE 0.6 mg/dL (0.6-1.3); GLUCOSE 157 mg/dL (74-106); SODIUM SERUM 138 mmol/L (136-145); UREA NITROGEN, BLOOD 9 mg/dL (7-18)
--- NOTE | 2022-09-25 07:30 | NUR ---
RECEIVED PT FROM DATA ENTRY MACHINE OPERATOR NURSE FOR CONTINUITY OF CARE. PT IN BED WITH EYES CLOSED. EVEN CHEST RISE AND FALL. NO DISTRESS NOTED. IV ON RIGHT HAND 24G AND L WRIST 24G. CALL LIGHT WITHIN REACH ALL SAFETY PRECAUTIONS IN PLACE
[2022-09-25 07:34] LABS: POTASSIUM 2.3 mmol/L (3.5-5.1)
[2022-09-25 08:00] VITALS: BP 145/65
[2022-09-25] MEDS: POTASSIUM CHLORIDE 10 MEQ TABER PO PRN (08:31)
[2022-09-25] MEDS: bisacodyL 5 MG TABEC PO SCH (08:33)
[2022-09-25] MEDS: POLYETHYLENE GLYCOL 17 GM/PKT PO SCH (08:38)
[2022-09-25] MEDS: ONDANSETRON 4 MG/2 ML VIAL IVP PRN ×2 (08:56→14:57)
[2022-09-25] MEDS: PANTOPRAZOLE 40 MG INJ VIAL IVP SCH (08:56)
[2022-09-25] MEDS ORDERED: POTASSIUM CHLORIDE 40 MEQ, LIDOCAINE 1% 25 MG in NACL 0.9% 250 ML IV SCH (13:00)
[2022-09-25 16:39] VITALS: BP 145/65
--- NOTE | 2022-09-25 18:00 | NUR ---
PT D/C PAPERWORK SIGNED BY DAUGHTER. DC PACKET GIVEN. BELONGINGS GATHERED AND TAKEN. IV REMOVED. PT IN WHEELCHAIR TAKEN TO [facility]. ASSISTED PT TO VEHICLE. PT STABLE. D/C TO HOME.
--- NOTE | 2022-09-26 10:22 | NUR ---
PHYSICAL THERAPY CO-SIGN The Physical Therapy Progress Notes documented by Zigzag Appliquer have been reviewed. Reviewed/Co-Signed by: Cece Blackmon Documentation Done by: IVY MILLER PTA Addendum: 09/26/22 at 1023 by Cece Blackmon PT Amended: Links added.
--- NOTE | 2022-09-26 10:23 | NUR ---
PHYSICAL THERAPY CO-SIGN The Physical Therapy Progress Notes documented by Maintenance Mechanic Telephone have been reviewed. Reviewed/Co-Signed by: Cece Blackmon Documentation Done by: IVY MILLER PTA Addendum: 09/26/22 at 1023 by Cece Blackmon PT Amended: Links added.
== END 2022-09-25 18:00 | disposition home or self-care (01) | DRG 720 ==
LOC: MED 19:52 → MTU 09-17 01:00 → MMU 09-17 08:46 → UNDOADMOB 09-17 08:46 → MTU 09-17 09:02 → MMU 09-17 09:02 → MTU 09-17 12:31 → UNDOADMOB 09-17 12:31 → MTU 09-18 22:01 → INTOOBSV 09-19 12:31 → OBSVTOIN 09-19 12:31
PROVIDERS: ADMIT Family Medicine; ATTEND Family Medicine
DX: A41.9 Sepsis, unspecified organism (principal); E87.20 Acidosis, unspecified; D61.818 Other pancytopenia; E83.51 Hypocalcemia; N39.0 Urinary tract infection, site not specified; B96.20 Unspecified Escherichia coli [E. coli] as the cause of diseases classified elsewhere; D64.9 Anemia, unspecified; E11.9 Type 2 diabetes mellitus without complications; E83.42 Hypomagnesemia; R65.20 Severe sepsis without septic shock; Z20.822 Contact with and (suspected) exposure to COVID-19; E87.6 Hypokalemia; E86.0 Dehydration; I10 Essential (primary) hypertension; K29.70 Gastritis, unspecified, without bleeding; Z85.6 Personal history of leukemia; Z90.49 Acquired absence of other specified parts of digestive tract; Z85.72 Personal history of non-Hodgkin lymphomas
CPT/HCPCS: G0378 ×47; 36415; 70450; 71045; 71275; 80048; 80053; 80202; 81003; 82948; 83605; 83690; 83735; 84484; 85025; 87040; 87081; 87086; 93005; 97110; 97112; 97116; 97530; C9113; J0456; J1815; J2001; J2405; J2543; J2765; J3370; J3475; J3480; J7030; J7060; Q9967

== ENCOUNTER 2023-02-19 16:27 | Inpatient (IN) | payer MEDICAID ==
[~2023-02-19] VITALS: Ht 165.1 cm; Wt 44.7 kg
[~2023-02-19 16:27] MED LIST: AMOX-999 PO; METF-1139 PO; VITA1TAB44 PO
--- NOTE | 2023-02-19 16:36 | NUR ---
DIYA ALS TO ER BED 9
[2023-02-19 16:43] VITALS: BP 118/77
[2023-02-19 17:25] LABS: BASOPHILS # (AUTO) 0.1 K/uL (0.00-0.22); EOSINOPHILS % (AUTO) 0.1 % (0.0-4.0); HEMATOCRIT 28.4 % (36-48); HEMOGLOBIN 9.9 g/dL (12.0-16.0); LYMPHOCYTES # (AUTO) 2.6 K/uL (2.5-16.5); LYMPHOCYTES % (AUTO) 36.5 % (20.5-51.1); MEAN CORPUSCULAR HEMOGLOBIN 33 pg (27-31); MEAN CORPUSCULAR HGB CONC 35 g/dL (33-37); MEAN CORPUSCULAR VOLUME 95.1 fL (80-94); MONOCYTES # (AUTO) 0.6 K/uL (0.8-1.0); NEUTROPHILS # (AUTO) 3.8 K/uL (1.8-7.7); NEUTROPHILS % (AUTO) 53.4 % (42.2-75.2); PLATELET COUNT (AUTO) 332 K/uL (140-450); RED BLOOD CELL COUNT(AUTO) 2.98 MIL/uL (4.20-5.40); RED CELL DISTRIBUTION WIDTH 14.6 % (11.6-13.7); WHITE BLOOD COUNT (AUTO) 7.1 K/uL (4.8-10.8)
[2023-02-19] MEDS ORDERED: NACL 0.9% 1,000 ML IV ONE (17:25)
[2023-02-19] MEDS ORDERED: cefTRIAXone 1,000 MG VIAL ONE (17:48)
[2023-02-19 17:52] LABS: ALBUMIN 2.8 g/dL (3.4-5.0); ASPARTATE AMINOTRANSFERASE 51 U/L (15-37); CARBON DIOXIDE 28.4 mmol/L (21-32); CHLORIDE 92 mmol/L (98-107); CREATININE 0.6 mg/dL (0.6-1.3); GLUCOSE 141 mg/dL (74-106); POTASSIUM 3.4 mmol/L (3.5-5.1); SODIUM SERUM 133 mmol/L (136-145); TOTAL BILIRUBIN 0.4 mg/dL (0.0-1.0); UREA NITROGEN, BLOOD 27 mg/dL (7-18)
--- NOTE | 2023-02-19 19:30 | NUR ---
ASSUMED CARE OF PT AT THIS TIME. PT IN POSITION OF COMFORT. STRAIGHT CATH DONE FOR COLLECTION OF URINE AT THIS TIME. PT TOLERATED WELL. VSS. WILL CONTINUE TO MONITOR.
[2023-02-19 19:42] LABS: APPEARANCE,URINE CLEAR (CLEAR); BILIRUBIN,URINE NEGATIVE (NEGATIVE); BLOOD, URINE NEGATIVE (NEGATIVE); COLOR,URINE YELLOW (YELLOW); LEUKOCYTE ESTERASE ,URINE 1+ (NEGATIVE); NITRITE, URINE POSITIVE (NEGATIVE); UGLUCOSE NEGATIVE (NEGATIVE)
[2023-02-19 19:59] LABS: RBC,URINE 0-5 /HPF (0-5)
--- NOTE | 2023-02-19 21:00 | NUR ---
PT RESTING, NO S/S OF DISTRESS NOTED. VSS. AWAITING ADMISSION.
--- NOTE | 2023-02-19 22:00 | NUR ---
NO S/S OF DISTRESS NOTED. VSS. AWAITING ADMISSION.
--- NOTE | 2023-02-19 23:00 | NUR ---
PT RESTING, VSS. NO S/S OF DISTRESS NOTED. PT TURNED AND REPOSITIONED AT THIS TIME. AWAITING BED ASSIGNMENT.
[2023-02-19] MEDS ORDERED: ACETAMINOPHEN 325 MG TAB PO PRN (23:50)
[2023-02-19] MEDS ORDERED: LORazepam 2 MG/ML VIAL IVP PRN (23:50)
[2023-02-19] MEDS ORDERED: MORPHINE SULFATE 2 MG/ML SYR IVP PRN (23:50)
[2023-02-19] MEDS ORDERED: ONDANSETRON 4 MG/2 ML VIAL IVP PRN (23:50)
--- NOTE | 2023-02-20 00:11 | NUR ---
SPOKE WITH SYLVIE ANTOINE, UPDATED ON POC. SYLVIE VERBALIZES FULL UNDERSTANDING. PT IS TAKEN CARE OF AT HOME AND FAMILY WILL BRING LIST OF MEDICATIONS IN AM.
[2023-02-20] MEDS ORDERED: AZITHROMYCIN 500 MG INJ VIAL IV ONE (00:18)
[2023-02-20] MEDS: AZITHROMYCIN 500 MG in DEXTROSE 5% 250 ML IV SCH (00:23)
[2023-02-20] MEDS: NACL 0.9% 1,000 ML IV SCH ×3 (00:25→18:37)
--- NOTE | 2023-02-20 02:30 | NUR ---
PT CLEANED, NEW LINEN ON BED. REPOSITIONED. VSS. NO S/S OF DISTRESS NOTED.
--- NOTE | 2023-02-20 03:30 | NUR ---
PT RESTING, REPOSITIONED. VSS. AWAITING BED AVAILABILITY.
--- NOTE | 2023-02-20 05:00 | NUR ---
NO CHANGE IN PT STATUS AT THIS TIME. NO S/S OF DISTRESS NOTED. VSS
--- NOTE | 2023-02-20 06:00 | NUR ---
NO CHANGE IN PT STATUS. PT RESTING, VSS. AWAITING BED ASSIGNMENT.
[2023-02-20 07:15] LABS: BASOPHILS # (AUTO) 0.1 K/uL (0.00-0.22); BASOPHILS % (AUTO) 1.7 % (0.0-2.0); EOSINOPHILS % (AUTO) 0.3 % (0.0-4.0); HEMATOCRIT 27.3 % (36-48); HEMOGLOBIN 9.4 g/dL (12.0-16.0); LYMPHOCYTES # (AUTO) 1.9 K/uL (2.5-16.5); LYMPHOCYTES % (AUTO) 35.7 % (20.5-51.1); MEAN CORPUSCULAR HEMOGLOBIN 33 pg (27-31); MEAN CORPUSCULAR HGB CONC 34 g/dL (33-37); MEAN CORPUSCULAR VOLUME 94.9 fL (80-94); MONOCYTES # (AUTO) 0.7 K/uL (0.8-1.0); MONOCYTES % (AUTO) 12.2 % (1.7-9.3); NEUTROPHILS # (AUTO) 2.7 K/uL (1.8-7.7); NEUTROPHILS % (AUTO) 50.1 % (42.2-75.2); PLATELET COUNT (AUTO) 335 K/uL (140-450); RED BLOOD CELL COUNT(AUTO) 2.88 MIL/uL (4.20-5.40); RED CELL DISTRIBUTION WIDTH 14.8 % (11.6-13.7); WHITE BLOOD COUNT (AUTO) 5.4 K/uL (4.8-10.8)
[2023-02-20 07:36] LABS: ALBUMIN 2.6 g/dL (3.4-5.0); ANION GAP 11.3 (8-16); ASPARTATE AMINOTRANSFERASE 47 U/L (15-37); CARBON DIOXIDE 30.8 mmol/L (21-32); CHLORIDE 97 mmol/L (98-107); CREATININE 0.4 mg/dL (0.6-1.3); GLUCOSE 115 mg/dL (74-106); MAGNESIUM 1.6 mg/dL (1.8-2.4); POTASSIUM 3.1 mmol/L (3.5-5.1); SODIUM SERUM 136 mmol/L (136-145); TOTAL BILIRUBIN 0.4 mg/dL (0.0-1.0); UREA NITROGEN, BLOOD 20 mg/dL (7-18)
[2023-02-20 08:09] VITALS: BP 122/65
--- NOTE | 2023-02-20 08:09 | NUR ---
RECEIVED PT FROM ED TO ROOM 122B, FULL REPORT PROVIDED. PT ON ROOM AIR WITH CHEST RISING AND FALLING EVEN AND UNLABORED. PT APHASIC UNABLE TO ANSWER QUESTIONS OR MAKE NEEDS KNOWN. IV PATENT AND INTACT. PT READJUSTED TO ROOMS BED, ALL CLINICAL ALARMS OPERATING. ALL BELONGINGS AT BEDSIDE. VSS. ALL SAFETY MEASURES IN PLACE, CALL LIGHT WITHIN REACH.
--- NOTE | 2023-02-20 08:16 | NUR ---
Patient will be admitted to care of SHAIKH. VINITA. Admited to TELE. Will go to room 122B. Belongings list completed. Report to ASIM GREENBERG.
--- NOTE | 2023-02-20 08:30 | NUR ---
SPOKE WITH PTS GRANDSONSYLVIE, . ALL ADMISSION QUESTIONS ANSWERED, ALL FAMILY QUESTIONS ANSWERED. POC DISCUSSED.
--- NOTE | 2023-02-20 09:16 | NUR ---
PATIENT HAS BEEN SCREENED AND CATEGORIZED HIGH NUTRITION RISK. PATIENT WILL BE SEEN WITHIN 1-2 DAYS OF ADMISSION. REVIEWED BY PIETRO ROGERS RD
[2023-02-20 12:00] VITALS: BP 110/68
--- NOTE | 2023-02-20 12:17 | NUR ---
PTS DAUGHTERS TOOK ALL BELONGINGS HOME.
[2023-02-20] MEDS ORDERED: DEXTROSE 50% 50 ML SYR IVP PRN (14:05)
[2023-02-20] MEDS ORDERED: INSULIN LISPRO SLIDING SCALE 100 UNITS/ML VIAL SUBQ PRN (14:05)
[2023-02-20] MEDS ORDERED: METO10TA11 PO (14:15)
[2023-02-20] MEDS ORDERED: ATOR10TA51 PO (14:15)
[2023-02-20] MEDS ORDERED: FOLI1TAB90 PO (14:15)
[2023-02-20] MEDS ORDERED: PANT40EC56 PO (14:15)
[2023-02-20] MEDS ORDERED: [UNRECOGNIZED DRUG - CODE] PO (14:15)
[2023-02-20] MEDS ORDERED: METF-352 PO (14:15)
[2023-02-20 16:00] VITALS: BP 121/58
--- NOTE | 2023-02-20 17:10 | NUR ---
02/20/23 RD INITIAL ASSESSMENT COMPLETED PLEASE REFER TO NUTRITION ASSESSMENT UNDER CARE ACTIVITY FOR ESTIMATED NUTRITIONAL NEEDS. 1. MONITOR NPO STATUS 2. WHEN/IF MEDICALLY APPROPRIATE TO START TF, RECOMMEND GLUCERNA 1.2 AT GOAL RATE 60 ML/HR, FWF 100 ML Q4H TOLERATED - PROVIDES 1440 ML TOTAL VOLUME, 1728 KCAL, 86 GM PROTEIN AND 1759 ML FREE WATER DAILY MEETING 100% ESTIMATED KCAL AND PROTEIN NEEDS; ADEQUATE - START TF AT 2O ML/HR INCREASE BY 2O ML Q4H UNTIL GOAL IS REACHED TOLERATED 3. MONITOR GI SYMPTOMS, GASTRIC RESIDUALS AND NUTRITION RELATED LAB VALUES 4. CONSULT RD PRN 5. RD TO FOLLOW-UP 2-3 DAYS, HIGH RISK REVIEWED BY PIETRO ROGERS RD
[2023-02-20] MEDS: BLOOD GLUCOSE MONITORING 1 DEV DEV FS SCH ×2 (17:29→21:07)
--- NOTE | 2023-02-20 17:39 | NUR ---
CALLED [facility] DEPARTMENT FOR PTS TUBE FEEDING
--- NOTE | 2023-02-20 18:48 | NUR ---
STILL PENDING MD RESPOND ON ELECTROLYTE COVERAGE, WILL ENDORSE TO FRAME FIXER NURSE. ALL OTHER NEEDS MET.
[2023-02-20 20:00] VITALS: BP 105/52
[2023-02-20] MEDS ORDERED: MAG SULF 2000 MG/WATER PREMIX 50 ML IV SCH (21:00)
[2023-02-20] MEDS ORDERED: POTASSIUM CHLORIDE 20% 40 MEQ/15 ML UDC GT SCH (21:00)
--- NOTE | 2023-02-20 21:07 | NUR ---
BLOOD SUGAR CHECKED = 83, NO INSULIN COVERAGE.
[2023-02-21] VITALS: BP 135/63
[2023-02-21] MEDS: AZITHROMYCIN 500 MG in DEXTROSE 5% 250 ML IV SCH ×2 (00:48→23:53)
[2023-02-21 04:00] VITALS: BP 124/50
[2023-02-21] MEDS: NACL 0.9% 1,000 ML IV SCH ×2 (05:50→15:50)
--- NOTE | 2023-02-21 07:20 | NUR ---
RECEIVED PT FROM OFFICE BOOKKEEPER NURSE FOR CONTINUITY OF CARE. PT RESTING IN BED APHASIC. RESPIRATIONS EVEN AND UNLABORED ON RA. IV ON R WRIST 20G INFUSING NS @ 100. SKIN WARM AND DRY. ALL SAFETY PRECAUTIONS IN PLACE.
[2023-02-21 08:00] VITALS: BP 113/47
[2023-02-21] MEDS: BLOOD GLUCOSE MONITORING 1 DEV DEV FS SCH ×4 (08:10→20:51)
--- NOTE | 2023-02-21 08:12 | NUR ---
BLOOD SUGAR CHECKED = 108, NO INSULIN COVERAGE
--- NOTE | 2023-02-21 11:10 | NUR ---
BLOOD SUGAR CHECK- 124. NO COVERAGE NEEDED.
--- NOTE | 2023-02-21 13:21 | NUR ---
MAKING ROUNDS. PT TALKING TO FAMILY AT BEDSIDE.
[2023-02-21 16:00] VITALS: BP 119/50
--- NOTE | 2023-02-21 16:30 | NUR ---
MAKING ROUNDS PT RESTING. NO DISTRESS NOTED. FAMILY AT BEDSIDE.
[2023-02-21 17:59] LABS: BASOPHILS # (AUTO) 0.1 K/uL (0.00-0.22); BASOPHILS % (AUTO) 1.1 % (0.0-2.0); EOSINOPHILS % (AUTO) 0.4 % (0.0-4.0); HEMATOCRIT 25.5 % (36-48); HEMOGLOBIN 8.9 g/dL (12.0-16.0); LYMPHOCYTES # (AUTO) 1.4 K/uL (2.5-16.5); LYMPHOCYTES % (AUTO) 29.8 % (20.5-51.1); MEAN CORPUSCULAR HEMOGLOBIN 33 pg (27-31); MEAN CORPUSCULAR HGB CONC 35 g/dL (33-37); MEAN CORPUSCULAR VOLUME 93.6 fL (80-94); MONOCYTES # (AUTO) 0.5 K/uL (0.8-1.0); MONOCYTES % (AUTO) 10.4 % (1.7-9.3); NEUTROPHILS # (AUTO) 2.8 K/uL (1.8-7.7); NEUTROPHILS % (AUTO) 58.3 % (42.2-75.2); PLATELET COUNT (AUTO) 371 K/uL (140-450); RED BLOOD CELL COUNT(AUTO) 2.73 MIL/uL (4.20-5.40); RED CELL DISTRIBUTION WIDTH 14.6 % (11.6-13.7); WHITE BLOOD COUNT (AUTO) 4.8 K/uL (4.8-10.8)
[2023-02-21 18:13] LABS: CHLORIDE 101 mmol/L (98-107); CREATININE 0.5 mg/dL (0.6-1.3); GLUCOSE 139 mg/dL (74-106); SODIUM SERUM 137 mmol/L (136-145); UREA NITROGEN, BLOOD 14 mg/dL (7-18)
--- NOTE | 2023-02-21 19:24 | NUR ---
ENDORSED PT TO INVESTMENT BANKING MANAGER NURSE FOR CONTINUITY OF CARE. PT IS STABLE.
--- NOTE | 2023-02-21 19:25 | NUR ---
RECEIVED PATIENT FROM AM NURSE FOR CONTINUITY OF CARE. PT IS STABLE
[2023-02-22] MEDS: NACL 0.9% 1,000 ML IV SCH ×2 (01:54→12:18)
--- NOTE | 2023-02-22 02:00 | NUR ---
PATIENT ASLEEP. NO S/SX OF DISTRESS NOTED
[2023-02-22 04:00] VITALS: BP 114/58
[2023-02-22] MEDS: BLOOD GLUCOSE MONITORING 1 DEV DEV FS SCH ×3 (06:40→16:30)
--- NOTE | 2023-02-22 06:56 | NUR ---
MESSAGED MD REGARDING PATIENTS POTASSIUM LEVEL OF 3.0 AWAITING RESPONSE
--- NOTE | 2023-02-22 07:20 | NUR ---
ENDORSED PATIENT TO AM NURSE FOR CONTINUITY OF CARE. PT IS STABLE
--- NOTE | 2023-02-22 07:21 | NUR ---
RECEIVED PT FROM ALLERGIST IMMUNOLOGIST NURSE FOR CONTINUITY OF CARE. PT IS IN BED SLEEPING VISIBLE CHEST RISE/FALL. RESPIRATIONS EVEN AND UNLABORED ON RA. SKIN IS WARM AND DRY. IV ON R WRIST RUNNING NS @ 100. TUBE FEEDING RUNNING. NO DISTRESS NOTED. CALL LIGHT WITHIN REACH. ALL SAFETY PRECAUTIONS IN PLACE.
[2023-02-22 08:00] VITALS: BP 122/64
--- NOTE | 2023-02-22 10:58 | NUR ---
BLOOD SUGAR CHECK DONE- 164. INSULIN ADMINISTERED PER SLIDING SCALE. PT TOLERATED WELL. FAMILY AT BEDSIDE.
[2023-02-22] MEDS ORDERED: CEFD300C3 GT (11:07)
[2023-02-22] MEDS ORDERED: KCL 20 MEQ IN 100 mL PREMIX 200 ML IV SCH (12:00)
[2023-02-22 13:08] VITALS: BP 122/64
[2023-02-22 16:00] VITALS: BP 136/65
--- NOTE | 2023-02-22 18:10 | NUR ---
DISCUSSED DISCHARGE PACKET WITH FAMILY AT BEDSIDE. ALL QUESTIONS ANSWERED. IV AND NAME BAND REMOVED. PT BELONGINGS GATHERED BY SON. PT TAKEN VIA WHEELCHAIR TO FRONT LOBBY. PT CARRIED INTO FAMILY VEHICLE. PT STABLE. DC TO HOME.
--- NOTE | 2023-02-23 09:08 | NUR ---
WOUND CONSULT NOT DONE, PT. DISCHARGED.
== END 2023-02-22 18:07 | disposition home or self-care (01) | DRG 720 ==
LOC: MED 16:27 → MTU 23:54
PROVIDERS: ADMIT Hospitalist; ATTEND Hospitalist
DX: A41.9 Sepsis, unspecified organism (principal); G93.41 Metabolic encephalopathy; E44.1 Mild protein-calorie malnutrition; R53.2 Functional quadriplegia; J18.9 Pneumonia, unspecified organism; E87.1 Hypo-osmolality and hyponatremia; E11.9 Type 2 diabetes mellitus without complications; E86.1 Hypovolemia; E78.5 Hyperlipidemia, unspecified; Z20.822 Contact with and (suspected) exposure to COVID-19; I10 Essential (primary) hypertension; E87.6 Hypokalemia; R53.81 Other malaise; Z66 Do not resuscitate; Z74.01 Bed confinement status; Z93.1 Gastrostomy status; Z85.6 Personal history of leukemia
CPT/HCPCS: 36415; 70450; 71045; 80048; 80053; 81001; 82948; 83605; 83735; 85025; 87040; 87081; 87086; 96361; 96365; 99291; J0456; J0696; J1815; J3480; J7060; Q0092